=== PATIENT | female | born 1955 | race Caucasian/White ===

== ENCOUNTER 2017-08-17 18:17 | Emergency (ER) | payer OTHER ==
[~2017-08-17] VITALS: Ht 172.7 cm; Wt 108.9 kg
--- NOTE | 2017-08-17 18:53 | NUR ---
RECEIVED REPORT FROM ANIBAL MORALES.
[2017-08-17] MEDS ORDERED: HYDROCODONE/APAP 10/325MG 1 EA TABLET ONE (18:57)
[2017-08-17] MEDS ORDERED: HYDROCODONE/APAP 10/325MG 1 EA TABLET PO ONE (19:00)
--- NOTE | 2017-08-17 19:08 | NUR ---
Alec morocho in ED - 08/17/17 at 1909 by [facility] AT BEDSIDE FOR EVAL.
--- NOTE | 2017-08-17 19:09 | NUR ---
RADIOLOGY AT BEDSIDE FOR XRAY
--- NOTE | 2017-08-17 20:10 | NUR ---
DR. ROBBINS AT BEDSIDE SPEAKING TO PT REGARDING RESULTS.
[2017-08-17 20:14] VITALS: BP 148/79
--- NOTE | 2017-08-17 20:14 | NUR ---
Patient discharged to home in stable condition. Written and verbal after care instructions given. Patient verbalizes understanding of instruction. ambulatory with a steady gait. instructed pt not to drive. pt verbalize understanding.
== END 2017-08-17 20:15 | disposition home or self-care (01) ==
LOC: ER 18:24
DX: M79.605 Pain in left leg (principal); I10 Essential (primary) hypertension; E11.9 Type 2 diabetes mellitus without complications
CPT/HCPCS: 73590; 99284; A4606; Z7610

== ENCOUNTER 2019-04-28 01:42 | Emergency (ER) | payer OTHER ==
[~2019-04-28] VITALS: Ht 172.7 cm; Wt 111.1 kg
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
--- NOTE | 2019-04-28 02:24 | NUR ---
BLOOD DRAWN AND GIVEN TO LAB
--- NOTE | 2019-04-28 02:27 | NUR ---
TECH AT BEDSIDE FOR EKG
[2019-04-28 02:35] LABS: BASOPHILS % (AUTO) 0.6 % (0.0-2.0); EOSINOPHILS % (AUTO) 3.8 % (0.0-6.0); HEMATOCRIT 36 % (33-45); HEMOGLOBIN 11.6 g/dL (11.5-14.8); LYMPHOCYTES # (AUTO) 3.1 /CMM (0.8-4.8); LYMPHOCYTES % (AUTO) 46.1 % (20.0-44.0); MEAN CORPUSCULAR HGB CONC 33 g/dl (31.0-36.0); MEAN CORPUSCULAR VOLUME 86 fL (82-100); MONOCYTES # (AUTO) 0.6 /CMM (0.1-1.30); NEUTROPHILS # (AUTO) 2.7 /CMM (1.8-8.9); NEUTROPHILS % (AUTO) 40.5 % (43.0-81.0); PLATELET COUNT (AUTO) 258 /CMM (150-450); RED BLOOD CELL COUNT(AUTO) 4.13 MIL/uL (4.0-5.2); WHITE BLOOD COUNT (AUTO) 6.7 K/uL (4.3-11.0)
[2019-04-28 02:42] LABS: CALCIUM, SERUM 9.6 mg/dL (8.5-10.1); CARBON DIOXIDE 27 mmol/L (21-32); CHLORIDE 103 mmol/L (98-107); CREATININE 0.8 mg/dL (0.6-1.3); GLUCOSE 109 mg/dL (74-106); POTASSIUM 4.1 mmol/L (3.5-5.1); SODIUM SERUM 140 mmol/L (136-145); UREA NITROGEN, BLOOD 12 mg/dL (7-18)
[2019-04-28 02:54] VITALS: BP 129/70
--- NOTE | 2019-04-28 03:26 | NUR ---
TECH AT BEDSIDE FOR REPEAT EKG
--- NOTE | 2019-04-28 03:52 | NUR ---
IV removed. Catheter intact and site benign. Pressure and 4x4 applied to site. No bleeding noted.Patient discharged to home in stable condition. Written and verbal after care instructions given. Patient verbalizes understanding of instruction.
== END 2019-04-28 03:55 | disposition home or self-care (01) ==
LOC: ER 01:42
DX: I44.1 Atrioventricular block, second degree (principal); I10 Essential (primary) hypertension; E11.9 Type 2 diabetes mellitus without complications
CPT/HCPCS: 36415; 80048-TC; 84484-TC; 85025-TC

== ENCOUNTER 2021-12-13 10:56 | Emergency (ER) | payer OTHER ==
[~2021-12-13] VITALS: Ht 167.6 cm; Wt 113.4 kg
[2021-12-13 11:05] VITALS: BP 142/67
--- NOTE | 2021-12-13 11:15 | NUR ---
BIBS c/o neck pain x 1 week 03/14 ps. AMBULATORY, PLACED ON BED, AAOX4.
--- NOTE | 2021-12-13 12:00 | NUR ---
PATIENT TAKEN TO CT FOR HEAD AND SPINE
[2021-12-13] MEDS ORDERED: OXYC5CAP18 PO (13:15)
[2021-12-13] MEDS ORDERED: CYCL5TAB PO (13:39)
--- NOTE | 2021-12-13 13:56 | NUR ---
Patient discharged to home in stable condition. Written and verbal after care instructions given. Patient verbalizes understanding of instruction.
== END 2021-12-13 13:56 | disposition home or self-care (01) ==
LOC: ER 11:02
DX: M54.2 Cervicalgia (principal); R51.9 Headache, unspecified; I10 Essential (primary) hypertension; E11.9 Type 2 diabetes mellitus without complications; Z79.899 Other long term (current) drug therapy
CPT/HCPCS: 70450; 72125; 99284; A6403

== ENCOUNTER 2022-06-16 07:59 | Emergency (ER) | payer OTHER ==
[~2022-06-16] VITALS: Ht 165.1 cm; Wt 111.1 kg
[~2022-06-16 07:59] MED LIST: CYCL5TAB PO; OXYC5CAP18 PO
[2022-06-16] MEDS ORDERED: BENZONATATE 100 MG CAPSULE PO PRN (09:00)
--- NOTE | 2022-06-16 09:39 | NUR ---
influenza and covid swab taken
[2022-06-16] MEDS ORDERED: ALBU18HF2 INH (10:42)
[2022-06-16] MEDS ORDERED: BENZ-13 PO (10:42)
[2022-06-16 10:55] VITALS: BP 142/102
--- NOTE | 2022-06-16 10:55 | NUR ---
Patient discharged to home in stable condition. Written and verbal after care instructions given. Patient verbalizes understanding of instruction.
== END 2022-06-16 10:55 | disposition home or self-care (01) ==
LOC: ER 07:59
DX: R05.9 Cough, unspecified (principal); Z20.822 Contact with and (suspected) exposure to COVID-19; I10 Essential (primary) hypertension; E11.9 Type 2 diabetes mellitus without complications
CPT/HCPCS: 99284; 71046; 87426; 87804; C9803

== ENCOUNTER 2024-08-28 13:48 | Emergency (ER) | payer MEDICARE, OTHER ==
[~2024-08-28] VITALS: Ht 167.6 cm; Wt 105.7 kg
[~2024-08-28 13:48] MED LIST changes: +ALBU18HF2 INH; +BENZ-13 PO
[2024-08-28 14:40] LABS: APPEARANCE,URINE CLEAR (CLEAR); BILIRUBIN,URINE NEGATIVE (NEGATIVE); BLOOD, URINE NEGATIVE Ery/uL (NEGATIVE); COLOR,URINE YELLOW (YELLOW); KETONES,URINE NEGATIVE (NEGATIVE); LEUKOCYTE ESTERASE ,URINE 1+ (NEGATIVE); NITRITE, URINE NEGATIVE (NEGATIVE); PROTEIN,URINE NEGATIVE (NEGATIVE); UGLUCOSE NEGATIVE (NEGATIVE); UROBILINOGEN,URINE 0.2 EU/dL (0.2)
[2024-08-28 14:43] LABS: BASOPHILS % (AUTO) 0.4 % (0.0-2.0); EOSINOPHILS # (AUTO) 0.2 K/uL (0.0-0.7); EOSINOPHILS % (AUTO) 2.4 % (0.0-6.0); HEMATOCRIT 38 % (33-45); HEMOGLOBIN 12.7 g/dL (11.5-14.8); LYMPHOCYTES # (AUTO) 3.4 K/uL (0.8-4.8); LYMPHOCYTES % (AUTO) 38.4 % (20.0-44.0); MEAN CORPUSCULAR HEMOGLOBIN 29 PG (26.0-33.0); MEAN CORPUSCULAR HGB CONC 34 g/dl (31.0-36.0); MEAN CORPUSCULAR VOLUME 87 fL (82-100); MONOCYTES # (AUTO) 0.6 K/uL (0.1-1.30); MONOCYTES % (AUTO) 6.7 % (2.0-12.0); NEUTROPHILS # (AUTO) 4.6 K/uL (1.8-8.9); NEUTROPHILS % (AUTO) 52.1 % (43.0-81.0); PLATELET COUNT (AUTO) 271 K/uL (150-450); RED BLOOD CELL COUNT(AUTO) 4.33 MIL/uL (4.0-5.2); RED CELL DISTRIBUTION WIDTH 14.3 % (11.5-15.0); WHITE BLOOD COUNT (AUTO) 8.8 K/uL (4.3-11.0)
[2024-08-28] MEDS ORDERED: ONDANSETRON HCL/PF 4 MG/2 ML VIAL ONE (14:44)
[2024-08-28] MEDS ORDERED: MORPHINE SULFATE INJ 4 MG/ML DISP.SYRIN ONE (14:45)
[2024-08-28] MEDS: ONDANSETRON HCL/PF 4 MG/2 ML VIAL IVP ONE (14:48)
[2024-08-28] MEDS: MORPHINE SULFATE INJ 2 MG/ML DISP.SYRIN IV ONE (14:48)
[2024-08-28 14:54] LABS: CALCIUM, SERUM 8.9 mg/dL (8.5-10.1); CREATININE 0.7 mg/dL (0.6-1.3); POTASSIUM 3.8 mmol/L (3.5-5.1)
[2024-08-28 15:02] LABS: ALBUMIN 3.9 g/dL (3.4-5.0); BILIRUBIN,DIRECT 0.1 mg/dL (0.0-0.2); BILIRUBIN,TOTAL 0.6 mg/dL (0.2-1.0); TOTAL PROTEIN, SERUM 8.2 g/dL (6.4-8.2)
[2024-08-28 15:06] LABS: ADD URINE CULTURE YES; BACTERIA,URINE Few /HPF (None Seen); RBC,URINE 0-2 /HPF (0-2)
[2024-08-28] MEDS ORDERED: ONDA4TAB11 PO (17:12)
[2024-08-28] MEDS ORDERED: CEFP200T14 PO (17:12)
[2024-08-28] MEDS ORDERED: IBUP-1490 PO (17:12)
[2024-08-28] MEDS ORDERED: KETOROLAC TROMETHAMINE 15 MG/ML VIAL ONE (17:19)
[2024-08-28] MEDS: KETOROLAC TROMETHAMINE 15 MG/ML VIAL IV ONE (17:26)
[2024-08-28 17:28] VITALS: BP 123/80; TEMP 98.5; O2SAT 97
== END 2024-08-28 17:28 | disposition home or self-care (01) ==
LOC: ER 13:54
DX: N39.0 Urinary tract infection, site not specified (principal); R10.9 Unspecified abdominal pain; E11.9 Type 2 diabetes mellitus without complications; I10 Essential (primary) hypertension
CPT/HCPCS: 99285; 74176; 96374; 96375; 85025; 80048; 87086; 83690; 80076; 81001; 36415; 82962; J1885; J2270; J2405

== ENCOUNTER 2025-01-18 08:16 | Emergency (ER) | payer OTHER ==
[~2025-01-18] VITALS: Ht 160 cm; Wt 102.5 kg
[~2025-01-18 08:16] MED LIST changes: +CEFP200T14 PO; +IBUP-1490 PO; +ONDA4TAB11 PO
[2025-01-18 09:00] LABS: PLATELET COUNT (AUTO) 263 K/uL (150-450); RED BLOOD CELL COUNT(AUTO) 4.01 MIL/uL (4.0-5.2); RED CELL DISTRIBUTION WIDTH 14.6 % (11.5-15.0); WHITE BLOOD COUNT (AUTO) 6.2 K/uL (4.3-11.0)
[2025-01-18] MEDS ORDERED: ONDANSETRON HCL/PF 4 MG/2 ML VIAL ONE (09:00)
[2025-01-18] MEDS ORDERED: MORPHINE SULFATE INJ 4 MG/ML DISP.SYRIN ONE (09:00)
[2025-01-18 09:09] LABS: CALCIUM, SERUM 9.4 mg/dL (8.5-10.1); CREATININE 0.7 mg/dL (0.6-1.3); SODIUM SERUM 142.0 mmol/L (136-145); UREA NITROGEN, BLOOD 10.0 mg/dL (7-18)
[2025-01-18 09:15] LABS: ASPARTATE AMINOTRANSFERASE 21.0 U/L (15-37); TOTAL PROTEIN, SERUM 7.8 g/dL (6.4-8.2)
[2025-01-18 09:36] LABS: APPEARANCE,URINE CLEAR (CLEAR); BLOOD, URINE NEGATIVE Ery/uL (NEGATIVE); LEUKOCYTE ESTERASE ,URINE 1+ (NEGATIVE); NITRITE, URINE NEGATIVE (NEGATIVE); UGLUCOSE NEGATIVE (NEGATIVE)
[2025-01-18] MEDS: ONDANSETRON HCL/PF 4 MG/2 ML VIAL IVP ONE (09:36)
[2025-01-18] MEDS: MORPHINE SULFATE INJ 2 MG/ML DISP.SYRIN IV ONE (09:36)
[2025-01-18] MEDS ORDERED: IOHEXOL-300 100 ML VIAL IV ONE (09:48)
[2025-01-18] MEDS ORDERED: IV NS 0.9% 250 ML IV ONE (09:49)
[2025-01-18 09:54] LABS: ADD URINE CULTURE YES; SQUAMOUS EPITHELIAL CELL,UR 0-2 /HPF (None Seen)
[2025-01-18] MEDS ORDERED: PANT20TA2 PO (12:37)
[2025-01-18] MEDS ORDERED: NITR100C6 PO (12:37)
[2025-01-18] MEDS ORDERED: IBUP-1490 PO (12:37)
[2025-01-18 12:45] VITALS: BP 150/80; TEMP 98.8; O2SAT 99
== END 2025-01-18 12:46 | disposition home or self-care (01) ==
LOC: ER 08:25
DX: N39.0 Urinary tract infection, site not specified (principal); R19.7 Diarrhea, unspecified; R11.2 Nausea with vomiting, unspecified; E11.9 Type 2 diabetes mellitus without complications; E78.5 Hyperlipidemia, unspecified; I10 Essential (primary) hypertension; K21.9 Gastro-esophageal reflux disease without esophagitis; R10.11 Right upper quadrant pain; Z79.899 Other long term (current) drug therapy; Z90.710 Acquired absence of both cervix and uterus
CPT/HCPCS: 99285; 74177; 96374; 76705; 96375; 85025; 80048; 87086; 83690; 80076; 81001; 36415; J2270; J2405; J7050; Q9967